=== PATIENT | male | born 1950 | race Caucasian/White ===

== ENCOUNTER → 2021-01-31 15:13 | Outpatient (CLI) | payer MEDICARE, SELFPAY ==
[2021-01-31] MEDS: COVID-19 VACC #1, MRNA(MOD) 100 MCG/0.5 ML VIAL IM (15:21)
== END ==
PROVIDERS: Visit Provider Internal Medicine
DX: Z23 Encounter for immunization (principal)
CPT/HCPCS: 0011A; 91301

== ENCOUNTER → 2021-02-28 12:44 | Outpatient (CLI) | payer MEDICARE, SELFPAY ==
[2021-02-28] MEDS: COVID-19 VACC #2, MRNA(MOD) 100 MCG/0.5 ML VIAL IM (12:50)
== END ==
PROVIDERS: Visit Provider Internal Medicine
DX: Z23 Encounter for immunization (principal)
CPT/HCPCS: 0012A; 91301